=== PATIENT | male | born 1935 | race Caucasian/White ===

== ENCOUNTER 2019-10-16 10:55 | Outpatient (CLI) | payer OTHER, SELFPAY ==
--- NOTE | 2019-10-16 10:59 | ECG_ITS ---
Measurements Intervals [place] Rate: 73 P: 258 RI: 292 QRS: -33 QRSD: 106 T: 76 QT: 385 QTc: 424 Interpretive Statements ELECTRONIC ATRIAL PACEMAKER ATRIAL AND VENTRICULAR PREMATURE COMPLEXES LEFT AXIS DEVIATION RSR' IN V1 OR V2, CONSIDER RIGHT VENTRICULAR HYPERTROPHY OR RIGHT VCD BORDERLINE T WAVE ABNORMALITY- DIFFUSE LEADS BASELINE ARTIFACT- I, II, III, AVR, AVL, AVF, V1-V6 ABNORMAL ECG Electronically Signed On 10-16-2019 11:36:28 AIRCRAFT POWERTRAIN REPAIRER by Dino Hogan D.O.
== END 2019-10-16 10:56 | disposition home or self-care (01) ==
LOC: ANHSURGERY 10:58
PROVIDERS: PCP Internal Medicine; Visit Provider Urology
DX: C67.9 Malignant neoplasm of bladder, unspecified (principal); Z95.0 Presence of cardiac pacemaker
CPT/HCPCS: 87086; 93005

== ENCOUNTER 2019-10-21 00:18 | Day surgery (SDC) | payer OTHER, SELFPAY ==
[2019-10-14 15:39] VITALS: BMI 25.1
[2019-10-21] VITALS (7 sets, daily range): BP systolic 96–146; BP diastolic 60–96; PULSE 60–77; RESP 12–18; TEMP 36.4–36.8; O2SAT 95–100; BMI 25.1
--- NOTE | ~2019-10-21 | XR_ITS ---
EXAMINATION: XR fluoroscopy no charge DATE: 10/21/2019 09:16 INDICATION: Bladder cancer. TECHNIQUE: A single intraoperative fluoroscopic view of the pelvis was obtained. I was not present. F luoroscopy exposure time was 11 seconds. COMPARISON: None. FINDINGS: There is a catheter in the bladder. There is a calcification in right pelvis. IMPRESSION: 1. Calcification in right pelvis, which may be a phlebolith or distal ureteral stone. Reviewed, dictated and finalized at location A. OR [employer] NETWORK ENGINEER
[2019-10-21] MEDS: LACTATED RINGERS 1,000 ML 30 ML IV CONT (07:15)
--- NOTE | 2019-10-21 07:54 | WPDANESEPPF ---
Anes - Initial Pre Proc Eval Procedure: Operation Date: 10/21/19 08:30 Proposed Procedures p Cystoscopy, Bladder Biopsy - Moris Campbell MD Date/Time: 10/21/19 07:54 Surgeon: Moris Campbell MD Pre Op Diagnosis: Bladder Ca Patient Data Age: 84 Gender: M Height: 1.8 m Weight: 81.65 kg Last Vital Signs Temp 36.4 C L 10/21/19 07:00 Pulse 70 10/21/19 07:00 Resp 18 10/21/19 07:00 BP 146/72 H 10/21/19 07:00 Pulse Ox 100 10/21/19 07:00 Allergies Allergy/AdvReac Type Severity Reaction Status Date / Time No Known Allergies Allergy Unverified 10/14/19 15:39 Home Medications Medication Instructions Recorded Confirmed Type apixaban [Eliquis] 5 mg PO BID 10/14/19 10/14/19 History clopidogrel [Plavix] 37.5 mg PO DAILY 10/14/19 10/14/19 History famotidine 20 mg PO DAILY 10/14/19 10/14/19 History metoprolol tartrate 50 mg PO DIRECTED 10/14/19 10/14/19 History ECG: Date of Service: 10/16/19 Procedure(s): CA 12 lead EKG Accession Number(s): [id number] cc: ~ Measurements Intervals [place] Rate: 73 P: 258 SD: 292 QRS: -33 QRSD: 106 T: 76 QT: 385 QTc: 424 Interpretive Statements ELECTRONIC ATRIAL PACEMAKER ATRIAL AND VENTRICULAR PREMATURE COMPLEXES LEFT AXIS DEVIATION RSR' IN V1 OR V2, CONSIDER RIGHT VENTRICULAR HYPERTROPHY OR RIGHT VCD BORDERLINE T WAVE ABNORMALITY- DIFFUSE LEADS BASELINE ARTIFACT- I, II, III, AVR, AVL, AVF, V1-V6 ABNORMAL ECG Electronically Signed On 10-16-2019 11:36:28 SAFETY ADMIN ASSISTANT by Dino Hogan D.O. Dictated By: Dino Hogan DO 10/16/19 1128 Patient hx anesthesia problems: none Family hx anesthesia problems: none PMFSH Past Medical History Medical History (Updated 10/21/19 @ 07:59 by Harman Montaño MD) Arthritis Atrial fibrillation Bladder cancer CAD (coronary artery disease) Chronic GERD COPD (chronic obstructive pulmonary disease) HTN (hypertension) Hyperlipidemia Pacemaker Surgical History Surgical History (Updated 10/21/19 @ 07:56 by Harman Montaño MD) Hx of coronary artery bypass graft Social History Social History Gender identity (if verbalized by the patient): Male Anes - Eval Final PreProcedure Day of Procedure 10/21/19 07:54 Patient weight: normal Heart: regular rate and rhythm Lungs: clear to auscultation and normal air movement Airway: Mallampati scale class II Neurological: alert and oriented Last oral intake: >/= 8 hours ASA classification: III Emergent: no Anesthetic plan: proceed Anesthesia type and monitoring: general LMA Informed Consent: The patient's anesthetic plan and its attendant risks and benefits were discussed with the patient/family/POA. Questions were solicited and answers provided to the satisfaction of the patient/family/POA.
--- NOTE | 2019-10-21 08:18 | PM.IMHP ---
H&P: HPI History of Present Illness Chief complaint: Bladder Ca Narrative: Robe Parra is a 84 year old male with a history of high-grade bladder tumors resected initially in February of 2018. He recently underwent a cystoscopy in the office which revealed erythema on the floor of the bladder posterior right area. His urine cytology was abnormal. He now presents for cystoscopy bladder biopsy and fulguration Review of Systems Review of Systems: All systems reviewed & are unremarkable except as noted in HPI and below PMFSH Past Medical History Medical History Arthritis Atrial fibrillation Bladder cancer CAD (coronary artery disease) Chronic GERD COPD (chronic obstructive pulmonary disease) HTN (hypertension) Hyperlipidemia Pacemaker Surgical History Surgical History Hx of coronary artery bypass graft Social History Social History Gender identity (if verbalized by the patient): Male Meds Home Medications and Allergies Home Medications Medication Instructions Recorded Confirmed Type apixaban [Eliquis] 5 mg PO BID 10/14/19 10/14/19 History clopidogrel [Plavix] 37.5 mg PO DAILY 10/14/19 10/14/19 History famotidine 20 mg PO DAILY 10/14/19 10/14/19 History metoprolol tartrate 50 mg PO DIRECTED 10/14/19 10/14/19 History Allergies Allergy/AdvReac Type Severity Reaction Status Date / Time No Known Allergies Allergy Unverified 10/14/19 15:39 Vital Signs Vital Signs - 24 hr 10/21/19 07:00 Temperature 36.4 C L Pulse Rate 70 Respiratory Rate 18 Blood Pressure 146/72 H Pulse Oximetry 100 Exam Const: General: no acute distress HENMT: General nose exam: Normal nares present Eyes: General: appearance normal, both eyes and all related structures Resp: Effort & Inspection: normal respiratory effort Cardio: Rate: regular rate Rhythm: regular rhythm GI: GI Palp: Yes Soft to palpation Skin: General skin exam: normal color Neuro: Speech: normal speech Assessment and Plan Assessment and plan (1) Bladder cancer: Code(s): C67.9 - Malignant neoplasm of bladder, unspecified Status: Acute Assessment and Plan: Cystoscopy with bladder biopsy and fulguration.
[2019-10-21] MEDS: ceFAZolin 2 GM/D5W 50 ML 2 GM/50 ML BAG IVPB (08:27)
[2019-10-21] MEDS: LIDOCAINE HCL 2% GEL UROJET 10 ML PKG MUCOUS MEM (08:48)
--- NOTE | 2019-10-21 09:13 | P.OP_ITS ---
Procedure Note - Detailed Date of procedure: 10/21/19 Pre-op diagnosis: Bladder Ca Post-op diagnosis: other (Same, urethral bulbar stricture) Procedure performed: Cysto with urethral dilatation with Amplatz dilators, bladder biopsy with fulguration Description of procedure: Patient was taken to the operative suite and correctly identified. Once general anesthesia was obtained he was placed in dorsal lithotomy position and prepped and draped usual sterile fashion. Twenty-two Georgian scope was inserted into the urethra. He has a bulbar urethral stricture this would not allow passage of the scope. At this point time we placed a superstiff wire through the stricture and dilated up to 24 Georgian. The scope was then advanced into the bladder. He has this irregularity on the floor towards the right. Using cold cup biopsy we biopsied this area. We then fulgurated the area around it. Given the dilation of the stricture we placed an 20 Georgian [place] tip catheter and inflated it with 10 cc of sterile water. 2% viscous lidocaine had been placed in the urethra. He was taken recovery stable condition. Will plan on removing the [place] on Sunday Anesthesia: GLMA Surgeon: Moris Campbell MD Drains: Yes Packing: No Pathology: yes Complications: No immediate complications Condition: stable Disposition: PACU
== END 2019-10-21 11:17 | disposition home or self-care (01) ==
PROVIDERS: PCP Internal Medicine; Visit Provider Urology
PROC: 0TBB8ZX Excision of Bladder, Via Natural or Artificial Opening Endoscopic, Diagnostic (ICD-10-PCS; CPT 52204; principal; 2019-10-21 08:30)
DX: C67.0 Malignant neoplasm of trigone of bladder (principal); N35.912 Unspecified bulbous urethral stricture, male; N30.80 Other cystitis without hematuria; I48.91 Unspecified atrial fibrillation; I25.10 Atherosclerotic heart disease of native coronary artery without angina pectoris; I10 Essential (primary) hypertension; E78.5 Hyperlipidemia, unspecified; K21.9 Gastro-esophageal reflux disease without esophagitis; J44.9 Chronic obstructive pulmonary disease, unspecified; Z95.0 Presence of cardiac pacemaker; Z79.01 Long term (current) use of anticoagulants; Z79.02 Long term (current) use of antithrombotics/antiplatelets
CPT/HCPCS: 52204; 88305; C1726; C1769; J0690; J1100; J2370; J2405; J2704; J3010; J7120

== ENCOUNTER 2020-02-18 15:12 | Outpatient (CLI) | payer OTHER, SELFPAY ==
[2020-02-18 15:33] LABS: Basophils Absolute Auto 0.1 K/mm3 (0.0-0.1); Basophils Percent Auto 0.8 % (0.2-1.2); Eosinophils Absolute Auto 0.4 K/mm3 (0-0.3); Eosinophils Percent Auto 5.7 % (0-4.4); Hematocrit 47.6 % (42.0-52.0); Hemoglobin 15.5 g/dL (14.0-18.0); Immature Granulocyte Absolute 0.02 K/mm3 (0.00-0.031); Immature Granulocyte Percent A 0.3 % (0-0.5); Lymphocytes Absolute Auto 1.75 K/mm3 (0.9-3.2); Lymphocytes Percent Auto 23.8 % (18.3-44.2); Mean Corpuscular HGB Conc 32.6 g/dl (32-36); Mean Corpuscular Hemoglobin 30.5 pg (26-34); Mean Corpuscular Volume 93.7 fl (80-100); Mean Platelet Volume 10.8 fl (7.4-10.4); Monocytes Absolute Auto 0.7 K/mm3 (0.1-0.6); Monocytes Percent Auto 9.1 % (2.6-8.5); Neutrophils Absolute Auto 4.4 K/mm3 (1.3-6.7); Neutrophils Percent Auto 60.3 % (45.5-73.1); Platelet Count Result 185 k/mm3 (150-375); Red Blood Count 5.08 M/mm3 (4.6-6.20); Red Cell Distribution Width 13.8 % (11.5-14.5); White Blood Count 7.4 K/mm3 (4.5-10.0)
[2020-02-18 15:42] LABS: INR 1.3; Prothrombin Time 15.7 Seconds (11.1-14.7)
[2020-02-18 15:43] LABS: Partial Thromboplastin Time 31.9 SECONDS (22.3-36.8)
[2020-02-18 15:46] LABS: Blood Urea Nitrogen 17 mg/dL (9-20); Calcium 9.2 mg/dL (8.4-10.2); Carbon Dioxide 29 mmol/L (22-30); Chloride 101 mmol/L (98-107); Estimated Glomerular Filt Rate > 60; Glucose 99 mg/dL (75-110); Potassium 4.9 mmol/L (3.4-5.0); Sodium 137 mmol/L (137-145)
== END 2020-02-18 15:13 | disposition home or self-care (01) ==
PROVIDERS: PCP Internal Medicine; Visit Provider Urology
DX: D49.4 Neoplasm of unspecified behavior of bladder (principal)
CPT/HCPCS: 36415; 80048; 85025; 85610; 85730; 87077; 87086; 87088; 87186

== ENCOUNTER 2020-02-21 06:23 | Outpatient (CLI) | payer OTHER, SELFPAY ==
[2020-02-21 17:27] LABS: SARS-CoV-2 RNA PCR Negative
== END 2020-02-21 06:24 | disposition home or self-care (01) ==
LOC: ANHCOVIDDT 06:24
PROVIDERS: PCP Internal Medicine; Visit Provider Urology
DX: Z01.812 Encounter for preprocedural laboratory examination (principal); Z11.59 Encounter for screening for other viral diseases
CPT/HCPCS: 87635; C9803; U0003

== ENCOUNTER 2020-02-24 02:27 | Day surgery (SDC) | payer OTHER, SELFPAY ==
[2020-02-16 16:10] VITALS: BMI 24.0
[2020-02-24] VITALS (7 sets, daily range): BP systolic 107–158; BP diastolic 59–90; PULSE 62–74; RESP 14–20; TEMP 36.2–36.4; O2SAT 100
--- NOTE | 2020-02-24 10:39 | WPDHPUPDATE1 ---
History and Physical Update Update Date/Time: 02/24/20 10:39 History and Physical has been reviewed, including an updated exam of the patient. There are NO changes in the patient's condition. Risks, benefits, and alternatives have been discussed and questions answered. Patient agrees to proceed with procedure.
--- NOTE | 2020-02-24 11:26 | WPDANESEPPF ---
Anes - Initial Pre Proc Eval Procedure: Operation Date: 02/24/20 12:45 Proposed Procedures p Trans Urethral Resection Bladder Tumor - Moris Campbell MD s Cystoscopy - Moris Campbell MD Date/Time: 02/24/20 11:26 Surgeon: Moris Campbell MD Pre Op Diagnosis: bladder tumor Patient Data Age: 84 Gender: M Height: 5 ft 11 in Weight: 78.4 kg Last Vital Signs Temp 36.4 C 02/24/20 11:13 Pulse 73 02/24/20 11:13 Resp 20 02/24/20 11:13 BP 127/69 02/24/20 11:13 Pulse Ox 100 02/24/20 11:13 Allergies Allergy/AdvReac Type Severity Reaction Status Date / Time No Known Allergies Allergy Unverified 02/24/20 11:17 Home Medications Medication Instructions Recorded Confirmed Type Eliquis 5 mg PO BID 10/14/19 02/24/20 History clopidogrel [Plavix] 37.5 mg PO DAILY 10/14/19 02/24/20 History famotidine 20 mg PO DAILY 10/14/19 02/16/20 History metoprolol tartrate 50 mg PO DIRECTED 10/14/19 02/24/20 History Patient hx anesthesia problems: none Family hx anesthesia problems: none PMFSH Past Medical History Medical History Arthritis Atrial fibrillation Bladder cancer CAD (coronary artery disease) Chronic GERD COPD (chronic obstructive pulmonary disease) HTN (hypertension) Hyperlipidemia Pacemaker Surgical History Surgical History Hx of coronary artery bypass graft Social History Social History Smoking packs per day: 1 Smoking cigarettes per day: 20.0 Years smoked: 30 Smoking pack-years: 30.00 Smoking status: Former smoker Tobacco type: cigarettes Additional smoking assessment comments: QUIT Substance use: never Living arrangements: with family Gender identity (if verbalized by the patient): Male Spiritual care concerns: No Anes - Eval Final PreProcedure Day of Procedure 02/24/20 11:26 Patient weight: normal Heart: regular rate and rhythm Lungs: decreased breath sounds Airway: Mallampati scale class II Neurological: other (alert) Last oral intake: >/= 8 hours ASA classification: III Emergent: no Anesthetic plan: proceed Anesthesia type and monitoring: general LMA and standard monitoring Informed Consent: The patient's anesthetic plan and its attendant risks and benefits were discussed with the patient/family/POA. Questions were solicited and answers provided to the satisfaction of the patient/family/POA.
[2020-02-24] MEDS: LACTATED RINGERS 1,000 ML 30 ML IV CONT (11:40)
[2020-02-24] MEDS: ceFAZolin 2 GM/D5W 50 ML 2 GM/50 ML BAG IVPB (12:39)
[2020-02-24] MEDS: LIDOCAINE HCL 2% GEL UROJET 10 ML PKG MUCOUS MEM (12:49)
--- NOTE | 2020-02-24 13:11 | PM.PROC ---
Procedure Note - Detailed Date of procedure: 02/24/20 Pre-op diagnosis: bladder tumor Post-op diagnosis: same Procedure performed: Urethral dilation. Cystoscopy. Transurethral resection of small bladder tumor. Description of procedure: Patient was taken the operative suite and correctly identified. Once general anesthesia was obtained he was placed in a dorsal lithotomy position and prepped and draped usual sterile fashion. Urethra was dilated up to 30 Tristanian without difficulty. Twenty-seven Tristanian resectoscope sheath is inserted in the bladder. The only irregularity noted was an area just lateral and distal to the right ureteral orifice. There was no discrete papillary growth however the tissue was slightly raised and erythematous. We went ahead and resected some of this tissue and sent for analysis. The base was then fulgurated. There was good hemostasis at termination of procedure. 2% viscous lidocaine was then inserted into the urethra and patient is taken recovery room stable condition. He will call for the path results in a week's time. Anesthesia: GLMA Surgeon: Moris Campbell MD Drains: No Packing: No Pathology: yes Complications: No immediate complications Condition: stable Disposition: PACU
== END 2020-02-24 14:43 | disposition home or self-care (01) ==
PROVIDERS: PCP Internal Medicine; Visit Provider Urology
PROC: 0TBB8ZZ Excision of Bladder, Via Natural or Artificial Opening Endoscopic (ICD-10-PCS; CPT 52234; principal; 2020-02-24 12:45)
PROC: 0TJB8ZZ Inspection of Bladder, Via Natural or Artificial Opening Endoscopic (ICD-10-PCS; CPT 52000; 2020-02-24 12:45)
DX: N30.80 Other cystitis without hematuria (principal); I48.91 Unspecified atrial fibrillation; I25.10 Atherosclerotic heart disease of native coronary artery without angina pectoris; I10 Essential (primary) hypertension; J44.9 Chronic obstructive pulmonary disease, unspecified; E78.5 Hyperlipidemia, unspecified; K21.9 Gastro-esophageal reflux disease without esophagitis; Z95.0 Presence of cardiac pacemaker; Z87.891 Personal history of nicotine dependence; Z79.02 Long term (current) use of antithrombotics/antiplatelets; Z79.01 Long term (current) use of anticoagulants
CPT/HCPCS: 52234; 87635; 88305; A9270; C9803; J0690; J2250; J2370; J2405; J2704; J3010; J7120; U0003

== ENCOUNTER 2022-04-02 13:57 | Emergency (ER) | payer OTHER, SELFPAY ==
[2022-04-02 14:12] VITALS: BP 115/65; PULSE 64; RESP 20; TEMP 36.6; O2SAT 100
--- NOTE | 2022-04-02 14:47 | ED.GENADULT ---
HPI - General Adult General Chief complaint: Unspecified Stated complaint: Skin Sore Source: patient Mode of arrival: ambulatory Limitations: no limitations History of Present Illness HPI narrative: Patient presents for evaluation of sinus congestion and drainage for the last 3 days. He states he has a mucopurulent yellow/green drainage from his naris. He denies any fever, chills, sore throat, respiratory symptoms. No recent sick contacts to his knowledge He is not using any medications for his symptoms. He does not smoke. No additional complaints or concerns. Related Data Home Medications Medication Instructions Recorded Confirmed famotidine 20 mg tablet 20 mg PO DAILY 10/14/19 04/02/22 metoprolol tartrate 50 mg tablet 50 mg PO DIRECTED 10/14/19 04/02/22 apixaban 5 mg tablet (Eliquis) 5 mg PO BID 04/02/22 04/02/22 clopidogrel 75 mg tablet (Plavix) 37.5 mg PO DAILY 04/02/22 04/02/22 Allergies Allergy/AdvReac Type Severity Reaction Status Date / Time No Known Allergies Allergy Verified 04/02/22 14:28 Review of Systems Review of Systems: CONSTITUTIONAL: Denies fever, chills, or sweats. EYES: Denies visual changes, redness, or discharge. ENT: Reports sinus congestion and thick yellow-green drainage from his nares CARDIOVASCULAR: Denies chest pain, palpitations, or edema. RESPIRATORY: Denies cough or dyspnea. GASTROINTESTINAL: Denies abdominal pain, nausea, vomiting, or diarrhea. GENITOURINARY: Denies dysuria or hematuria. SKIN: Denies rash or itching. MUSCULOSKELETAL: Denies back pain, joint pain, or myalgia. NEUROLOGIC: Denies headache, numbness, dizziness, or weakness. PSYCHIATRIC: Denies anxiety or depression. [facility] Past Medical History Medical History Arthritis Atrial fibrillation Bladder cancer CAD (coronary artery disease) Chronic GERD COPD (chronic obstructive pulmonary disease) HTN (hypertension) Hyperlipidemia Pacemaker Surgical History Surgical History Hx of coronary artery bypass graft Family History Family History (Updated 04/02/22 @ 14:49 by JIE Nino, KARI) Mother Family history non-contributory Social History Social History Smoking packs per day: 1 Smoking cigarettes per day: 20.0 Years smoked: 30 Smoking pack-years: 30.00 Smoking status: Former smoker Tobacco type: cigarettes Additional smoking assessment comments: QUIT Substance use: never Gender identity (if verbalized by the patient): Male Spiritual care concerns: No Exam Narrative: GENERAL: Well-appearing, well-nourished, and in no acute distress. HEAD: Normocephalic, atraumatic. EYES: PERRLA and EOMI. ENT: Nares clear, no rhinorrhea or epistaxis. Mucous membranes moist. Oropharynx without tonsillar hypertrophy exudate or other lesions. Bilateral TMs pearly callaway nonbulging. No frontal or maxillary sinus tenderness. NECK: Supple. No adenopathy or masses. No carotid bruits or JVD CHEST: Clear to auscultation. No respiratory distress. No wheezes rales or rhonchi HEART: Regular rate and rhythm. No murmur heard. Normal peripheral pulses. ABDOMEN: Soft, nontender, nondistended, normal active bowel sounds. EXTREMITIES: Normal range of motion. No edema. SKIN: Warm, dry, no rash. NEURO: No focal deficits. Alert and oriented x3. PSYCH: Normal mood and affect. Course Course Emergency Course: This is an 86-year-old gentleman who presented for evaluation of sinus symptoms. Based on nature of drainage, he meets criteria for ABRS. We will treat with Augmentin. He states that he needs an oral suspension versus tablet/capsule. Follow up outpatient for further evaluation and treatment and return for worsening symptoms. Pt in agreement with plan of care. Level of Care: Express Care Visit Vital Signs Vital sign
== END 2022-04-02 14:57 | disposition home or self-care (01) ==
PROVIDERS: Emergency Provider Nurse Practitioner
DX: J01.90 Acute sinusitis, unspecified (principal); Z87.891 Personal history of nicotine dependence; M19.90 Unspecified osteoarthritis, unspecified site; I25.10 Atherosclerotic heart disease of native coronary artery without angina pectoris; K21.9 Gastro-esophageal reflux disease without esophagitis; J44.9 Chronic obstructive pulmonary disease, unspecified; I10 Essential (primary) hypertension; E78.5 Hyperlipidemia, unspecified; Z95.0 Presence of cardiac pacemaker; I48.91 Unspecified atrial fibrillation; Z95.1 Presence of aortocoronary bypass graft
CPT/HCPCS: 99213; G0463

== ENCOUNTER 2023-12-10 09:23 | Emergency (ER) | payer OTHER, SELFPAY ==
[2023-12-10 09:34] VITALS: BP 125/53; PULSE 81; RESP 20; TEMP 36.3; O2SAT 100
--- NOTE | 2023-12-10 09:52 | ED.GENADULT ---
HPI - General Adult General Stated complaint: Sore Throat Source: patient, RN notes reviewed and old records reviewed Mode of arrival: ambulatory Limitations: no limitations History of Present Illness HPI narrative: 88-year-old male patient presents to [facility] with complaint of sore throat for 3 days. Patient states yesterday had hoarseness. Patient denies any other symptoms. Patient denies fever, headache, cough, congestion Related Data Home Medications Medication Instructions Recorded Confirmed famotidine 20 mg tablet 20 mg PO DAILY 10/14/19 12/10/23 metoprolol tartrate 50 mg tablet 50 mg PO DIRECTED 10/14/19 12/10/23 apixaban 5 mg tablet (Eliquis) 5 mg PO BID 04/02/22 12/10/23 lisinopril 10 mg tablet 10 mg PO DAILY 12/10/23 12/10/23 rosuvastatin 5 mg tablet 5 mg PO DAILY 12/10/23 12/10/23 Allergies Allergy/AdvReac Type Severity Reaction Status Date / Time No Known Allergies Allergy Verified 04/02/22 14:28 Review of Systems Constitutional: Constitutional: Reports no additional constitutional complaints, Denies body ache(s), Denies chills, Denies fatigue, Denies fever(s) and Denies headache(s) Eyes: Eyes: Reports no additional eye complaints and Denies blurry vision ENT: Reports system reviewed and no additional complaints, except as documented, Denies vertigo, Denies dizziness, Denies ear discharge, Denies otalgia, Denies facial pain, Denies headache(s), Denies nasal congestion, Denies nasal discharge, Denies sinus pain, Denies sinus pressure and Reports sore throat Cardiovascular: Cardiovascular: Reports no additional cardiovascular complaints, Denies chest pain, Denies chest pain at rest, Denies rapid heart rate and Denies dyspnea Respiratory: Respiratory: Reports no additional respiratory complaints, Denies chest congestion, Denies cough, Denies pain on inspiration, Denies pain with cough and Denies dyspnea Gastrointestinal: Gastrointestinal: Denies abdominal pain, Denies diarrhea, Denies nausea and Denies vomiting Integumentary/Breasts: Skin/Breast: Denies rash Neurologic: Reports system reviewed and no additional complaints, except as documented, Denies vertigo, Denies dizziness and Denies headache(s) Endocrine: Endocrine: Denies fatigue [facility] Past Medical History Medical History (Updated 12/10/23 @ 09:58 by Sandie Partida APRN) Arthritis Atrial fibrillation Bladder cancer CAD (coronary artery disease) Chronic GERD COPD (chronic obstructive pulmonary disease) HTN (hypertension) Hyperlipidemia Pacemaker Surgical History Surgical History Hx of coronary artery bypass graft Family History Family History Mother Family history non-contributory Social History Social History Smoking packs per day: 1 Smoking cigarettes per day: 20.0 Years smoked: 30 Smoking pack-years: 30.00 Smoking status: Former smoker Tobacco type: cigarettes Additional smoking assessment comments: QUIT Substance use: never Living arrangements: with family Gender identity (if verbalized by the patient): Male Spiritual care concerns: No Comments At the time of my signature, I reviewed and agree with the nursing past medical, surgical, social, and family history. There is no relevant family history pertinent to the patient complaint. Exam Const: General: cooperative, healthy appearing, no acute distress and well nourished Nutritional Appearance: well nourished Orientation/consciousness: patient oriented x3 Limitations: no limitations HENMT: Head: normal to inspection and normocephalic Ears: external ears normal, TM's normal bilaterally, EAC's normal and mastoids normal Face/Nose/Sinus: normal facial exam Face and sinus: normal facial exam Mouth: Yes Normal oral and palatal mucosa present, Yes oropharynx normal and
== END 2023-12-10 10:11 | disposition home or self-care (01) ==
PROVIDERS: Emergency Provider Registered Nurse; PCP Internal Medicine
DX: J02.9 Acute pharyngitis, unspecified (principal); Z87.891 Personal history of nicotine dependence; M19.90 Unspecified osteoarthritis, unspecified site; I48.91 Unspecified atrial fibrillation; I25.10 Atherosclerotic heart disease of native coronary artery without angina pectoris; K21.9 Gastro-esophageal reflux disease without esophagitis; J45.909 Unspecified asthma, uncomplicated; I10 Essential (primary) hypertension; E78.5 Hyperlipidemia, unspecified; Z95.0 Presence of cardiac pacemaker; Z85.3 Personal history of malignant neoplasm of breast; Z95.1 Presence of aortocoronary bypass graft; Z79.01 Long term (current) use of anticoagulants
CPT/HCPCS: 87081; 87880; 99213; G0463

== ENCOUNTER 2025-07-21 11:28 | Emergency (ER) | payer OTHER, SELFPAY ==
[2025-07-21 11:36] VITALS: BP 107/45; PULSE 66; RESP 16; TEMP 36.1; O2SAT 100
[2025-07-21 11:55] LABS: EDUAAPPEAR Cloudy; EDUABILI Negative (Negative); EDUABLOOD 2+ (Negative); EDUACOLOR1 Amber; EDUAGLUCOSE 2+ (Negative); EDUAKETONE Negative (Negative); EDUALEUKO 2+ (Negative); EDUANITRATE Positive (Negative); EDUAPH 7.0; EDUAPROTEIN 2+ (Negative); EDUASPGRAVITY 1.020; EDUAUROBILI 1.0
--- OUTSIDE RECORDS SUMMARY | 2025-07-21 12:34 | XMS_ITS | Clinical Summary ---
Author Organization [facility] Address [address] [place] [address] Care Team Providers Care Sales Assistant Entertainment And Media Name Role Phone Haider Tanner MD Primary Care Provider Source Comments [facility],non-owned Affiliates and Associated Physician Practices is amultiple site organization consisting of ambulatory clinics and hospital sitesin [place], [place], [place] and [place]. This disclosure is being madepursuant to the Care Everywhere program and may not contain all information available regarding this patient. Last updated 18.[facility] Allergies No known active allergies Medications * Be aware that medications may not be up to date on this document. Alwaysverify current medications with the patient. apixaban (ELIQUIS) 5 MG tablet TAKE 1 TABLET BY MOUTH TWICE A DAY 0 Active famotidine (PEPCID) 40 MG tablet Take 40 mg by mouth once daily 0 Active metoprolol tartrate (LOPRESSOR) 50 MG tablet Take 75 mg by mouth once daily 0 Active clopidogrel (PLAVIX) 75 MG tablet Take 75 mg by mouth once daily 8 Active sildenafil (VIAGRA) 100 MG tablet TAKE 1 TABLET BY MOUTH EVERY DAY NEEDED FOR ERECTILE DYSFUNCTION 0 Active Immunizations Immunization Administration Dates Next Due INFLUENZA VACCINE, TRIV. (AF LURIA, FLUZONE TRIVALENT; 6MO+) (IIV3) 08/09/2012 INFLUENZA VACCINE 06/18/2019,06/18/2017 INFLUENZA VACCINE, HIGH-DOSE , QUADR. (FLUZONE HIGH-DOSE QUADRIVALENT; 65Y+), 0.7 ML (HD-IIV4) 06/18/2019,05/11/2018,06/12/2017,2015,06/25/2015,06/19/2014,05/16/2013 INFLUENZA VACCINE, QUADR. (A FLURIA, FLUZONE QUADRIVALENT; 6MO+) (IIV4) 05/25/2009 PNEUMOCOCCAL PPSV23 06/03/2009 Pneumococcal Pcv13 Conj 08/18/2015,07/04/2015 Td (Adult), 2 Lf Tetanus Tox oid, Adsorbed, Pf 03/07/2018 Family History Medical History Relation Name Comments CAD (Coronary Artery Disease) Brother CAD (Coronary Artery Disease) Father Asthma Sister Cancer - Lung Neg Hx Relation Name Status Comments Brother Father Sister Social History Tobacco Use Types Packs/Day Years Used Date Smoking Tobacco: Former Smokeless Tobacco: Never Tobacco Cessation:Counseling Given: Yes Comments:Quit 30 years ago, not a full pack daily Alcohol Use Standard Drinks/Week Comments Yes 0 (1 standard drink = 0.6 oz pur e alcohol) AUDIT-C Answer Date Recorded Q1: How often do you have a drink containing alc ohol? 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 Gender Identity Not on file Sexual Orientation Not on file Last Filed Vital Signs Vital Sign Reading Time Taken Comments Blood Pressure 122/72 02/18/2020 10:44 AM CDT Pulse - - Temperature - - Respiratory Rate - - Oxygen Saturation - - Inhaled Oxygen Concentration - - Weight 80.7 kg (178 lb) 09/20/2021 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 Height 180.3 cm (5' 11) 09/20/2021 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 Body Mass Index 24.83 09/20/2021 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 Plan of Treatment Health Maintenance Due Date Last Done Comments ZOSTER VACCINE (1 of 2) 1986 Respiratory Syncytial Virus (RSV) Vaccine Pt: or over 60 yrs (1 - 1-dose 75+ series) 2011 DTAP/TDAP/TD VACCINES (1 - Tdap) 03/08/2018 03/07/2018 DEPRESSION SCREENING 08/20/2024 COVID-19 VACCINE ( season) 2025 11/02/2020, 10/12/2020 INFLUENZA VACCINE (#1) 2025 0, 06/18/2019, 06/18/2019, Additional history exists PNEUMOCOCCAL VACCINE 50+ Completed 015, 07/04/2015, 06/03/2009 HEPATITIS B VACCINE Aged Out No longe r eligible based on patient's age to complete this topic HIB VACCINE Aged Out No longer eligi ble based on patient's age to complete this topic HPV VACCINE Aged Out No longer eligi ble based on patient's age to complete this topic MENINGOCOCCAL (Group B) VACCINE SHARED DECISION-MAKING Aged Out No longer eligible based on patient's age to complete this topic MENINGOCOCCAL GROUPS A/C/Y/W VACCINE Aged Out No longer eligible based on patient's age to complete this topic Insurance AET AET [facility] MEDICARE AET Care Teams Sales Assistant Entertainment And Media Relationship Specialty Start Date End Date Haider Tanner MD [address] [id number] PCP - General 02/10/20
--- NOTE | 2025-07-21 13:02 | ED.GENADULT ---
HPI - General Adult General Chief complaint: Urogenital-Male Stated complaint: Urinary Problem Source: patient Mode of arrival: ambulatory Limitations: no limitations History of Present Illness HPI narrative: Patient presents for evaluation of urinary symptoms. He reports 4 episodes per night nocturia for several years. He states that there is no increase in number of episodes per night but it has been more bothersome as of late. He states his primary concern is mild dysuria which he has noted for two months. This occurs at the end of urinary stream and is only mild. He has seen mucus in his urine as of late. he denies any hematuria, fever, chills, nausea, vomiting, abdominal pain or flank pain. He has a history of bladder cancer. His urologist is Dr. Campbell. He states that recently he has had some left-sided chest pain and left upper extremity pain. Denies pain at the present time. He states he had similar symptoms in the past and needed bypass surgery. Related Data Home Medications ?Medication ?Instructions ?Recorded ?Confirmed ?Last Taken ?Type famotidine 20 mg tablet 20 mg PO DAILY 10/14/19 12/10/23 Unknown History metoprolol tartrate 50 mg tablet 50 mg PO DIRECTED 10/14/19 12/10/23 02/24/20 09:30 History apixaban 5 mg tablet (Eliquis) 5 mg PO BID 04/02/22 12/10/23 Unknown History rosuvastatin 5 mg tablet 5 mg PO DAILY 12/10/23 12/10/23 Unknown History amiodarone 100 mg tablet mg 07/21/25 Unknown History dapagliflozin propanediol 10 mg mg 07/21/25 Unknown History tablet (Farxiga) famotidine 40 mg tablet mg 07/21/25 Unknown History lovastatin 10 mg tablet mg 07/21/25 Unknown History metoprolol succinate 25 mg mg PO 07/21/25 Unknown History tablet,extended release 24 hr sacubitril-valsartan .ROUTE 07/21/25 Unknown History spironolactone 25 mg tablet mg 07/21/25 Unknown History Allergies Allergy/AdvReac Type Severity Reaction Status Date / Time No Known Allergies Allergy Verified 07/21/25 11:42 Review of Systems Review of Systems: CONSTITUTIONAL: Denies fever, chills, or sweats. EYES: Denies visual changes, redness, or discharge. ENT: Denies rhinorrhea, congestion, sore throat, or otalgia. CARDIOVASCULAR: reports recent chest pain, none currently. Denies palpitations, or edema. RESPIRATORY: Denies cough or dyspnea. GASTROINTESTINAL: Denies abdominal pain, nausea, vomiting, or diarrhea. GENITOURINARY: reports 4 episodes per night nocturia with decreased force of urinary stream, some burning at the end of urinary stream and visible mucus in the urine SKIN: Denies rash or itching. MUSCULOSKELETAL: reports recent pain in the left upper arm, none currently. NEUROLOGIC: Denies headache, numbness, dizziness, or weakness. PSYCHIATRIC: Denies anxiety or depression. [facility] Past Medical History Medical History Chronic GERD COPD (chronic obstructive pulmonary disease) Atrial fibrillation Hyperlipidemia Arthritis Bladder cancer Pacemaker HTN (hypertension) CAD (coronary artery disease) Surgical History Surgical History Hx of coronary artery bypass graft Family History Family History Mother Family history non-contributory Social History Social History Smoking packs per day: 1 Smoking cigarettes per day: 20.0 Years smoked: 30 Smoking pack-years: 30.00 Smoking status: Former smoker Tobacco type: cigarettes Additional smoking assessment comments: QUIT Substance use: never Living arrangements: with family Gender identity (if verbalized by the patient): Male Spiritual care concerns: No Exam Narrative: GENERAL: Well-appearing, well-nourished, and in no acute distress. HEAD: Normocephalic, atraumatic. EYES: PERRLA and EOMI. ENT: Nares clear, no rhinorrhea or epistaxis. Mucous membranes moist. Oropharynx without tonsillar hypertrophy exudate or other lesions. Bilateral TMs pearly callaway nonbulging NECK: Supple. No adenopathy or masses. No carotid bruits or JVD CHEST: Clear to auscultation. No respiratory distress. No wheezes rales or rhonchi HEART: Regular rate and rhythm. No murmur heard. Normal peripheral pulses. ABDOMEN: Soft, nontender, nondistended, normal active bowel sounds. EXTREMITIES: Normal range of motion. No edema. SKIN: Warm, dry, no rash. NEURO: No focal deficits. Alert and oriented x3. PSYCH: Normal mood and affect. Course Course Emergency Course: This is an 89 year-old male presented for evaluation of urinary symptoms. He has nitrites present in his urine. Will treat with cephalexin. I did advised that he follow-up with urology to determine if there is underlying pathology contributing to infection including BPH and/or bladder cancer. I will start him on Flomax to addresses nocturia. 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 He was not sent to the emergency department today as he is currently pain-free. He was advised to go to the emergency department in the event that he has worsening symptoms or has recurrent left upper extremity/chest pain. Patient in agreement with plan of care. Level of Care: Express Care Visit Vital Signs Vital signs: Vital Signs Temperature 36.1 C L 07/21/25 11:36 Pulse Rate 66 07/21/25 11:36 Respiratory Rate 16 07/21/25 11:36 Blood Pressure 107/45 L 07/21/25 11:36 Pulse Oximetry 100 07/21/25 11:36 Oxygen Delivery Room Air 07/21/25 11:36 Temperature 36.1 C L 07/21/25 11:36 Pulse Rate 66 07/21/25 11:36 Respiratory Rate 16 07/21/25 11:36 Blood Pressure 107/45 L 07/21/25 11:36 Pulse Oximetry 100 07/21/25 11:36 Oxygen Delivery Room Air 07/21/25 11:36 MDM Differential Diagnosis Differential Diagnosis: Urinary tract infection secondary to BPH versus bladder cancer versus prostate cancer verses other angina verses musculoskeletal pain versus GERD versus other Lab Data Labs: Lab Results 07/21/25 Range/Units 11:53 POC Urine Color Lucia POC Urine Clarity Cloudy POC Urine pH 7.0 POC Ur Specif Douglas 1.020 POC Urine Protein 2+ (Negative) POC Ur Glucose (UA) 2+ (Negative) POC Urine Ketones Negative (Negative) POC Urine Blood 2+ (Negative) POC Urine Nitrite Positive (Negative) POC Urine Bilirubin Negative (Negative) POC Urine Urobilinogen 1.0 POC U Leukocyte Esteras 2+ (Negative) Discharge Plan Discharge Clinical Impression: Urinary tract infection Patient Disposition: Home Condition: Stable Instructions: Antibiotic Form, Urinary Tract Infection in Men (DC) Additional Instructions: PLEASE CALL DR. CAMPBELL TODAY TO TELL HIM YOU SEE MUCUS IN YOUR URINE PLEASE CALL YOUR FACILITIES MAINTENANCE ENGINEER TODAY TO LET THEM KNOW ABOUT RECENT CHEST PAIN. Patient Language: Upper Sorbian Prescriptions: New cephalexin 500 mg capsule 500 mg PO Q12H Qty: 14 0RF tamsulosin 0.4 mg capsule 0.4 mg PO DAILY Qty: 14 0RF No Action Eliquis 5 mg Tablet 5 mg PO BID rosuvastatin 5 mg tablet 5 mg PO DAILY famotidine 40 mg tablet lovastatin 10 mg tablet spironolactone 25 mg tablet metoprolol succinate 25 mg tablet extended release 24 hr PO amiodarone 100 mg tablet dapagliflozin propanediol [Farxiga] 10 mg tablet sacubitril-valsartan [Entresto] .ROUTE famotidine 20 mg Tablet 20 mg PO DAILY metoprolol tartrate 50 mg Tablet 50 mg PO DIRECTED Rx Instructions: 1.5 tab po morning, 1 tab at hs Follow-up/Referrals: Flores,Haider Torres MD [Primary Care Provider] Time of Disposition: 13:00
== END 2025-07-21 13:05 | disposition home or self-care (01) ==
PROVIDERS: Emergency Provider Nurse Practitioner; PCP Internal Medicine
DX: N39.0 Urinary tract infection, site not specified (principal); I25.10 Atherosclerotic heart disease of native coronary artery without angina pectoris; I10 Essential (primary) hypertension; I48.91 Unspecified atrial fibrillation; J44.9 Chronic obstructive pulmonary disease, unspecified; E78.5 Hyperlipidemia, unspecified; K21.9 Gastro-esophageal reflux disease without esophagitis; M19.90 Unspecified osteoarthritis, unspecified site; Z95.0 Presence of cardiac pacemaker; Z95.1 Presence of aortocoronary bypass graft; Z85.51 Personal history of malignant neoplasm of bladder; Z87.891 Personal history of nicotine dependence; Z79.01 Long term (current) use of anticoagulants
CPT/HCPCS: 81003; 87086; 99213; G0463